=== PATIENT | female | born 1985 | race Caucasian/White ===

== ENCOUNTER 2016-08-30 00:29 | Emergency (ER) | payer OTHER ==
[~2016-08-30] VITALS: Ht 160 cm; Wt 59.0 kg
[2016-08-30 01:54] VITALS: BP 108/42
== END 2016-08-30 02:01 | disposition home or self-care (01) ==
LOC: ER 00:29
DX: M79.601 Pain in right arm (principal); F19.10 Other psychoactive substance abuse, uncomplicated; F12.10 Cannabis abuse, uncomplicated